=== PATIENT | female | born 1970 | race Caucasian/White ===

== ENCOUNTER 2022-12-26 09:49 | Emergency (ER) | payer SELFPAY ==
[2022-12-26] MEDS ORDERED: clonazePAM 0.5 MG TAB ONE (10:15)
[2022-12-26 10:51] LABS: Absolute Lymphocytes (CBC) 1.8 K/uL (0.7-4.9); Hematocrit 44.7 % (36.0-45.0); Lymphocytes % 20.5 % (15.3-44.8); MCV 90.4 fL (80-100); MPV 9.1 fL (7.6-11.3); RBC Red Blood Cell Count 4.95 M/uL (3.86-4.86)
[2022-12-26 11:17] LABS: BUN Blood Urea Nitrogen 15 mg/dL (7-18); Bicarbonate 29 mmol/L (21-32); Glomerular Filtration Rate 83 ml/min (=/>90); Magnesium 1.8 mg/dL (1.6-2.4); Potassium 4.2 mmol/L (3.5-5.1); Sodium Level 131 mmol/L (136-145)
[2022-12-26 11:18] LABS: Troponin High Sensitivity < 3.0 pg/mL (<58.9)
[2022-12-26 11:19] LABS: Glucose Level 425 mg/dL (74-106)
--- NOTE | 2022-12-26 11:31 | RAD REPORT ---
EXAM DESCRIPTION: RAD - Chest Single View - 12/26/2022 11:22 am CLINICAL HISTORY: CHEST PAIN COMPARISON: No comparisons FINDINGS: Lines: Sternotomy. Atrial appendage occluding device. Lungs: No evidence of edema or pneumonia. Pleural: No significant pleural effusions or pneumothorax. Cardiac: The heart size is within normal limits. Mediastinum: Within normal limits. Bones: No acute fractures. Other: None IMPRESSION: No acute cardiopulmonary disease.
[2022-12-26] MEDS ORDERED: NA CHLORIDE 0.9% 1,000 ML ONE (11:41)
[2022-12-26] MEDS ORDERED: INSULIN -REGULAR HUMAN 50 UNIT/0.5 ML ML ONE (11:55)
--- NOTE | 2022-12-26 13:00 | EDPHYS ---
Physician Documentation [facility] Name: María San Age: 52 yrs Sex: Female : 1970 Arrival Date: 12/26/2022 Time: 09:50 Bed 16 Private MD: ED Physician Enrike Gregorio HPI: 12/26 13:25 This 52 yrs old Female presents to ER via Ambulatory with complaints of Anxiety. kb 13:25 The patient presents to the emergency department with anxiety, over unknown kb circumstances. Onset: The symptoms/episode began/occurred 3 day(s) ago. Past psychiatric history: Prior diagnosis: Anxiety depression, Psychiatric medications include: Jj, Primary psychiatric physician: the patient does not have a primary psychiatric physician. Associated signs and symptoms: Pertinent positives; anxiety, chest pain, palpitations, shortness of breath. Severity of symptoms: At their worst the symptoms were moderate in the emergency department the symptoms are unchanged. The patient has experienced similar episodes in the past. The patient has not recently seen a physician. Historical: - Allergies: 09:58 Benadryl; aa5 - Home Meds: 09:58 metformin 1000mg BID [Active]; Glipizide 5mg daily [Active]; metoprolol 25mg BID aa5 [Active]; atorvastatin 80mg daily [Active]; aspirin 81mg daily [Active]; lisinopril 2.5mg daily [Active]; lexapro 20mg daily [Active]; abilify 20mg daily [Active]; trazadone 100mg nightly [Active]; clonazepam 0.5mg TID [Active]; - PMHx: 09:58 Anxiety; Myocardial infarction; Diabetes mellitus; Hypercholesterolemia; Hypertensive aa5 disorder; - PSHx: 09:58 Triple bypass; aa5 - Immunization history:: Adult Immunizations unknown. - Social history:: Smoking status: Patient reports the use of cigarette tobacco products, denies chronic smoking, but will smoke occasionally. ROS: 13:31 Constitutional: Negative for fever, chills, and weight loss. kb 13:31 Cardiovascular: Positive for chest pain, palpitations. 13:31 Respiratory: Positive for shortness of breath. 13:31 Psych: Positive for anxiety. 13:31 All other systems are negative. Exam: 13:27 Constitutional: This is a well developed, well nourished patient who is awake, alert, kb and in no acute distress. Head/Face: Normocephalic, atraumatic. ENT: Moist Mucous membranes Cardiovascular: Regular rate and rhythm with a normal S1 and S2. No gallops, murmurs, or rubs. No pulse deficits. Respiratory: Respirations even and unlabored. No increased work of breathing. Talking in full sentences Abdomen/GI: Soft, non-tender. No distention Skin: Warm, dry with normal turgor. Normal color. MS/ Extremity: Pulses equal, no cyanosis. Neurovascular intact. Full, normal range of motion. Neuro: Awake and alert, GCS 15, oriented to person, place, time, and situation. Moves all extremities. Normal gait. 13:27 Psych: Behavior/mood is cooperative, anxious, Affect is calm, Oriented to person, place, time, Patient has no thoughts/intents to harm self or others. Judgement / Insight is normal. Memory is normal. Vital Signs: 09:57 BP 148 / 81; Pulse 120; Resp 24 S; Temp 98.2(TE); Pulse Ox 98% on R/A; aa5 10:32 Pulse 88; Resp 18; Pulse Ox 96% on R/A; Pain 0/10; ld1 12:05 BP 109 / 68; Pulse 86; Resp 18; Pulse Ox 97% on R/A; ld1 13:08 BP 111 / 75; Pulse 84; Resp 18; Pulse Ox 98% on R/A; Pain 0/10; ld1 MDM: 10:01 Patient medically screened. kb 13:27 Differential diagnosis: Anxiety, palpitations, IL, abnormal EKG. Data reviewed: vital kb signs, nurses notes. Consideration of Admission/Observation Escalation of care including admission/observation considered. Admission considered due to chest pain but will do a rule out in the ER due to onset of 3 days ago. Care significantly affected by the following chronic conditions: Diabetes, Hypertension. Scoring Tools HEART Score: History: ECG: Age: Risk Factors: > or = 3 Risk factors for atherosclerotic disease (2), Troponin: Total Score = 3. Counseling: I had a detailed discussion with the patient and/or guardian regarding: the historical points, exam findings, and any diagnostic results supporting the discharge/admit diagnosis, lab results, radiology results, the need for outpatient follow up, a family practitioner, to return to the emergency department if symptoms worsen or persist or if there are any questions or concerns that arise at home. ED course: Patient is a 52-year-old female with a history of IL and triple bypass that presents for anxiety attack that started 3 days ago. Reports palpitations, shortness of breath and chest pain associated with it. States that this feels similar to previous episodes of anxiety with her history and the chest pain she was concerned. Patient reports that she has been out of her Klonopin for a couple of days. On exam patient appears anxious, is tachycardic. Respirations even and unlabored, lungs clear bilaterally. Serum labs, EKG and chest x-ray ordered and completed. Patient educated on need for repeat troponin due to chest pain and history. Patient also educated on hyperglycemia and need for treatment. Patient states she has been taking her medications as prescribed. Patient elected not to have second troponin completed and wanted to go home. Patient was feeling better after Klonopin and did not want to wait for further treatment. Patient educated on return precautions that she could return at any point for any reason.. 12/26 10:05 Order name: Basic Metabolic Panel; Complete Time: 11:26 kb 12/26 10:05 Order name: CBC with Diff; Complete Time: 10:52 kb 12/26 10:05 Order name: Magnesium; Complete Time: 11:26 kb 12/26 10:05 Order name: Troponin HS; Complete Time: 11:26 kb 12/26 10:05 Order name: XRAY Chest (1 view); Complete Time: 11:40 kb 12/26 10:05 Order name: EKG; Complete Time: 10:05 kb 12/26 10:05 Order name: Cardiac monitoring; Complete Time: 10:08 kb 12/26 10:05 Order name: EKG - Nurse/Tech; Complete Time: 10:08 kb 12/26 10:05 Order name: IV Saline Lock; Complete Time: 10:48 kb 12/26 10:05 Order name: Labs collected and sent; Complete Time: 10:48 kb 12/26 10:05 Order name: O2 Per Protocol; Complete Time: 10:08 kb 12/26 10:05 Order name: O2 Sat Monitoring; Complete Time: 10:08 kb 12/26 12:59 Order name: Blood Glucose Level kb 12/26 13:05 Order name: Glucose, Ancillary Testing; Complete Time: 13:09 EDMS Administered Medications: 10:12 Drug: KLONopin (clonazePAM) 0.5 mg Route: PO; ld1 10:32 Follow up: Response: No adverse reaction ld1 11:38 Drug: NS 0.9% 1000 ml Route: IV; Rate: 1000 ml; Site: right antecubital; ld1 11:59 Drug: Insulin Regular Human 5 units {Co-Signature: iw (Chrissy Nunez RN).} Route: IVP; ld1 Site: left antecubital; Disposition: 19:22 Co-signature as Attending Physician, Enrike Gregorio MD I reviewed the patient's care rn provided by the Advanced Practice Provider and agree with the diagnosis and treatment plan. Disposition Summary: 12/26/22 13:00 Discharge Ordered Location: Home kb Condition: Stable kb Diagnosis - Anxiety disorder, unspecified kb Followup: kb - With: Emergency Department - When: As needed - Reason: Worsening of condition Followup: kb - With: Private Physician - When: 2 - 3 days - Reason: Recheck today's complaints, Continuance of care, Re-evaluation by your physician Discharge Instructions: - Discharge Summary Sheet kb - Panic Attack, [id number] kb - Managing Anxiety, Adult kb Forms: - Medication Reconciliation Form kb - Thank You Letter kb - Antibiotic Education kb - Prescription Opioid Use kb Signatures: Dispatcher [employer] EDWI Katelyn Quesada, TRANSPORT COMPANY MANAGER-C TRANSPORT COMPANY MANAGER-Enrike Ngo MD MD rn Calderon, Audri RN RN aa5 Christina Ravi RN RN ld1 Chrissy Nunez RN iw
--- NOTE | 2022-12-26 13:00 | ER ---
Nurse's Notes [facility] Name: María San Age: 52 yrs Sex: Female : 1970 Arrival Date: 12/26/2022 Time: 09:50 Bed 16 Private MD: Diagnosis: Anxiety disorder, unspecified Presentation: 12/26 09:57 Chief complaint: Patient states: "I've been having major anxiety and I just recently aa5 relocated here from [place] and I am out of my anxiety medication". 09:57 Coronavirus screen: At this time, the client does not indicate any symptoms associated aa5 with coronavirus-19. Ebola Screen: Patient denies travel to an Ebola-affected area in the 21 days before illness onset. Initial Sepsis Screen: Does the patient meet any 2 criteria? HR > 90 bpm. Does the patient have a suspected source of infection? No. Patient's initial sepsis screen is negative. Risk Assessment: Do you want to hurt yourself or someone else? Patient reports no desire to harm self or others. Onset of symptoms was December 24, 2022. 09:57 Method Of Arrival: Ambulatory aa5 09:57 Acuity: ZENAIDA 3 aa5 Historical: - Allergies: 09:58 Benadryl; aa5 - Home Meds: 09:58 metformin 1000mg BID [Active]; Glipizide 5mg daily [Active]; metoprolol 25mg BID aa5 [Active]; atorvastatin 80mg daily [Active]; aspirin 81mg daily [Active]; lisinopril 2.5mg daily [Active]; lexapro 20mg daily [Active]; abilify 20mg daily [Active]; trazadone 100mg nightly [Active]; clonazepam 0.5mg TID [Active]; - PMHx: 09:58 Anxiety; Myocardial infarction; Diabetes mellitus; Hypercholesterolemia; Hypertensive aa5 disorder; - PSHx: :58 Triple bypass; aa5 - Immunization history:: Adult Immunizations unknown. - Social history:: Smoking status: Patient reports the use of cigarette tobacco products, denies chronic smoking, but will smoke occasionally. Screenin:32 [facility] ED Fall Risk Assessment (Adult) History of falling in the last 3 months, ld1 including since admission No falls in past 3 months (0 pts). Abuse screen: Denies threats or abuse. Denies injuries from another. Nutritional screening: No deficits noted. Tuberculosis screening: No symptoms or risk factors identified. Assessment: 10:32 General: Appears in no apparent distress. comfortable, Behavior is cooperative, ld1 anxious. Pain: Denies pain. Neuro: Level of Consciousness is awake, alert, obeys commands, Oriented to person, place, time, situation, Appropriate for age. Cardiovascular: Capillary refill < 3 seconds Patient's skin is warm and dry. Rhythm is sinus rhythm. Respiratory: Airway is patent Respiratory effort is even, unlabored. GI: Abdomen is flat, non-distended. : No signs and/or symptoms were reported regarding the genitourinary system. EENT: No signs and/or symptoms were reported regarding the EENT system. Derm: No signs and/or symptoms reported regarding the dermatologic system. Musculoskeletal: No signs and/or symptoms reported regarding the musculoskeletal system. 13:08 Reassessment: Patient appears in no apparent distress at this time. No changes from ld1 previously documented assessment. Patient and/or family updated on plan of care and expected duration. Pain level reassessed. Patient is alert, oriented x 3, equal unlabored respirations, skin warm/dry/pink. 13:08 Reassessment: Pt requesting to leave - states "I feel much better." Notified ERP. ld1 Vital Signs: 09:57 BP 148 / 81; Pulse 120; Resp 24 S; Temp 98.2(TE); Pulse Ox 98% on R/A; aa5 10:32 Pulse 88; Resp 18; Pulse Ox 96% on R/A; Pain 0/10; ld1 12:05 BP 109 / 68; Pulse 86; Resp 18; Pulse Ox 97% on R/A; ld1 13:08 BP 111 / 75; Pulse 84; Resp 18; Pulse Ox 98% on R/A; Pain 0/10; ld1 ED Course: 09:50 Patient arrived in ED. am2 09:57 Arm band placed on. aa5 10:01 Katelyn Quesada FNP-C is PHCP. kb 10:01 Enrike Gregorio MD is Attending Physician. kb 10:02 Triage completed. aa5 10:08 Christina Ravi, HERMINIO is Primary Nurse. ld1 10:32 Patient has correct armband on for positive identification. Placed in gown. Bed in low ld1 position. Call light in reach. Side rails up X2. quality assurance monitor on. Pulse ox on. NIBP on. Door closed. Noise minimized. Warm blanket given. 10:32 No provider procedures requiring assistance completed. ld1 11:24 XRAY Chest (1 view) In Process Unspecified. EDMS 13:08 IV discontinued, intact, bleeding controlled, No redness/swelling at site. ld1 Administered Medications: 10:12 Drug: KLONopin (clonazePAM) 0.5 mg Route: PO; ld1 10:32 Follow up: Response: No adverse reaction ld1 11:38 Drug: NS 0.9% 1000 ml Route: IV; Rate: 1000 ml; Site: right antecubital; ld1 11:59 Drug: Insulin Regular Human 5 units {Co-Signature: michelle (Chrissy Nunez RN).} Route: IVP; ld1 Site: left antecubital; Medication: 10:32 VIS not applicable for this client. ld1 Outcome: 13:00 Discharge ordered by . yessi 13:08 Discharged to home ambulatory. ld1 13:08 Condition: stable 13:08 Discharge instructions given to patient, Instructed on discharge instructions, follow up and referral plans. Demonstrated understanding of instructions, follow-up care. 13:09 Patient left the ED. ld1 Signatures: Dispatcher [employer] Katelyn Jeong, COMMERCIAL LAWN SPECIALIST-C COMMERCIAL LAWN SPECIALIST-Gris Hester, RN RN aa5 Sharon Aguilar am2 Christina Ravi RN RN ld1 Chrissy martinez
[2022-12-26 13:22] VITALS: BP 111/75; O2SAT 98
[2022-12-26 13:24] VITALS: TEMP 100.1
--- NOTE | 2022-12-27 14:33 | EKG ---
Test Date: 2022-12-26 Test Time: 10:13:26 Manager Inside: JOEY MEASUREMENT RESULTS: Intervals: Rate: 99 IA: 168 QRSD: 92 QT: 334 QTc: 428 [place]: P: 65 IA: 168 QRS: 82 T: 44 INTERPRETIVE STATEMENTS: Normal sinus rhythm Septal infarct, age undetermined Abnormal ECG No previous ECG available for comparison Electronically Signed On 12-27-22 14:29:32 GLASS FRAME FITTER by David Santos
== END 2022-12-26 13:09 | disposition home or self-care (01) ==
LOC: ER 09:49
DX: F41.9 Anxiety disorder, unspecified (principal)
CPT/HCPCS: 36415; 71045; 80048; 82947; 83735; 84484; 85025; 93005; 96374; 99284; J1815; J7030

== ENCOUNTER 2023-05-21 12:35 | Emergency (ER) | payer SELFPAY ==
[2023-05-21] MEDS ORDERED: NA CHLORIDE 0.9% 1,000 ML ONE (14:27)
[2023-05-21 14:41] LABS: Absolute Lymphocytes (CBC) 2.7 K/uL (0.7-4.9); Hematocrit 44.1 % (36.0-45.0); Lymphocytes % 27.5 % (15.3-44.8); MCV 90.7 fL (80-100); MPV 8.5 fL (7.6-11.3); RBC Red Blood Cell Count 4.86 M/uL (3.86-4.86)
[2023-05-21 14:59] LABS: Albumin 3.4 g/dL (3.4-5.0); Bilirubin Total 0.3 mg/dL (0.2-1.0); Potassium 4.3 mEq/L (3.5-5.1); Protein, Total 7.2 g/dL (6.4-8.2)
[2023-05-21] MEDS ORDERED: INSULIN -REGULAR HUMAN 50 UNIT/0.5 ML ML ONE (15:18)
[2023-05-21] MEDS ORDERED: LORazepam 2 MG/ML VIAL ONE (15:53)
[2023-05-21 16:06] LABS: Specific Gravity 1.013 (1.005-1.030); Urine Bilirubin NEGATIVE (Negative); Urine Blood Negative (Negative); Urine Clarity Clear (Clear); Urine Color Yellow (Yellow); Urine Glucose 2+ (Negative); Urine Protein NEGATIVE (Negative); Urine Urobilinogen Normal (Normal); Urine pH 5.5 (5.0-7.0)
--- NOTE | 2023-05-21 16:21 | ER ---
Nurse's Notes [facility] Name: María San Age: 53 yrs Sex: Female : 1970 Arrival Date: 05/21/2023 Time: 12:35 Bed 16 Private MD: Diagnosis: Hyperglycemia, anxiety Presentation: 05/21 12:53 Chief complaint: Patient states: "I can't get my blood sugar under 300 and it's been aa5 going on for weeks". Pt reports generalized weakness, feeling lightheaded, and nausea. Pt also states "I am also very anxious". Coronavirus screen: nausea. Ebola Screen: Patient denies travel to an Ebola-affected area in the 21 days before illness onset. Initial Sepsis Screen: Does the patient meet any 2 criteria? No. Patient's initial sepsis screen is negative. Does the patient have a suspected source of infection? No. Patient's initial sepsis screen is negative. Risk Assessment: Do you want to hurt yourself or someone else? Patient reports no desire to harm self or others. Onset of symptoms was April 2023. 12:53 Acuity: ZENAIDA 3 aa5 12:53 Method Of Arrival: Ambulatory aa5 FILEMAKER DEVELOPER: 12:57 LMP N/A - Post-menopause aa5 Historical: - Allergies: 12:53 Benadryl; aa5 - PMHx: 12:53 Anxiety; diabetes mellitus; Hypercholesterolemia; Hypertensive disorder; Myocardial aa5 infarction; - PSHx: 12:53 triple bypass; aa5 Screenin:00 [facility] ED Fall Risk Assessment (Adult) History of falling in the last 3 months, ll1 including since admission No falls in past 3 months (0 pts) Confusion or Disorientation No (0 pts) Intoxicated or Sedated No (0 pts) Impaired Gait No (0 pts) Mobility Assist Device Used No (0 pt) Altered Elimination No (0 pt) Score/Fall Risk Level 0 - 2 = Low Risk. Abuse screen: Denies threats or abuse. Denies injuries from another. Nutritional screening: No deficits noted. Tuberculosis screening: No symptoms or risk factors identified. Assessment: 13:00 General: Appears in no apparent distress. comfortable, Behavior is cooperative, ll1 appropriate for age, anxious. Pain: Denies pain. Neuro: Level of Consciousness is awake, alert, obeys commands, Oriented to person, place, time, situation, Appropriate for age Reports dizziness. Cardiovascular: Capillary refill < 3 seconds. Respiratory: Airway is patent Trachea midline Respiratory effort is even, unlabored, Respiratory pattern is regular, symmetrical. GI: Reports nausea, Patient currently denies diarrhea, vomiting. : No signs and/or symptoms were reported regarding the genitourinary system. EENT: No signs and/or symptoms were reported regarding the EENT system. Derm: No signs and/or symptoms reported regarding the dermatologic system. Skin is intact, is healthy with good turgor, Skin is pink, warm \\T\\ dry. Musculoskeletal: No signs and/or symptoms reported regarding the musculoskeletal system. Circulation, motion, and sensation intact. Capillary refill < 3 seconds, Range of motion: intact in all extremities. 14:00 Reassessment: Patient appears in no apparent distress at this time. No changes from ll1 previously documented assessment. Patient and/or family updated on plan of care and expected duration. Pain level reassessed. Patient is alert, oriented x 3, equal unlabored respirations, skin warm/dry/pink. 15:00 Reassessment: Patient appears in no apparent distress at this time. No changes from ll1 previously documented assessment. Patient and/or family updated on plan of care and expected duration. Pain level reassessed. Patient is alert, oriented x 3, equal unlabored respirations, skin warm/dry/pink. Vital Signs: 12:53 BP 138 / 91; Pulse 80; Resp 18 S; Temp 98.1(TE); Pulse Ox 98% on R/A; Weight 68.04 kg aa5 (R); Height 5 ft. 5 in. (R); 15:35 BP 110 / 64; Pulse 68; Resp 19 S; Pulse Ox 100% on R/A; Pain 0/10; ll1 12:53 Body Mass Index 24.96 (68.04 kg, 165.1 cm) aa5 15:35 Pain Scale: Adult ll1 ED Course: 12:37 Patient arrived in ED. am2 12:41 Rome Sabillon MD is Attending Physician. sp3 12:53 Arm band placed on. aa5 12:55 Triage completed. aa5 13:00 Patient has correct armband on for positive identification. Bed in low position. Call ll1 light in reach. Side rails up X 1. Adult w/ patient. 13:51 Patient placed in an exam room, on a stretcher. ll1 13:57 Helen Cordova, RN is Primary Nurse. 1 16:27 Provided Education on: diabetes and anxiety management. 6 16:27 No provider procedures requiring assistance completed. IV discontinued, intact, kc6 bleeding controlled, No redness/swelling at site. Pressure dressing applied. Administered Medications: 14:32 Drug: NS 0.9% IV 1000 ml Route: IV; Rate: 1 bolus; Site: right antecubital; ll1 15:53 Follow up: Response: No adverse reaction; IV Status: Completed infusion; IV Intake: ll1 1000ml 15:14 Drug: Insulin Regular Human IVP 10 units {Co-Signature: eh3 (Ryanne Levy RN).} Route: ll1 IVP; Site: right antecubital; 15:53 Follow up: Response: No adverse reaction; Blood sugar is lowered ll1 15:52 Drug: Ativan IVP 1 mg Route: IVP; Site: right antecubital; 1 16:27 Follow up: Response: No adverse reaction; Anxiety decreased; RASS: Alert and Calm (0) [facility] Medication: 16:28 VIS not applicable for this client. 6 Point of Care Testing: Blood Glucose: 12:57 Blood Glucose: 306 mg/dL; aa5 Ranges: Intake: 15:53 IV: 1000ml; Total: 1000ml. 1 Outcome: 16:21 Discharge ordered by . sp3 16:27 Discharged to home ambulatory, with significant other. 6 16:27 Condition: improved 16:27 Discharge instructions given to patient, Instructed on discharge instructions, follow up and referral plans. Demonstrated understanding of instructions, follow-up care. 16:28 Patient left the ED. [facility] Signatures: Gris Barajas RN RN aa5 Sharon Aguilar am2 Helen Cordova, HERMINIO RN ll1 Rome Sabillon MD MD sp3 Jie Beltrán RN RN kc6 Ryanne Levy RN eh3 Corrections: (The following items were deleted from the chart) 13:32 12:53 Allergies: Benadryl; aa5 aa5 13:32 12:53 Allergies: Morphine; aa5 aa5 13:35 13:34 Allergies: tomatoes; aa5 aa5
--- NOTE | 2023-05-21 16:21 | EDPHYS ---
Physician Documentation [facility] Name: María San Age: 53 yrs Sex: Female : 1970 Arrival Date: 05/21/2023 Time: 12:35 Bed 16 Private MD: ED Physician Rome Sabillon HPI: 05/21 14:53 This 53 yrs old Female presents to ER via Ambulatory with complaints of Anxiety, High sp3 Blood Sugar. 14:53 53-year-old female with history of diabetes, anxiety, hyperlipidemia presents to the ED sp3 with chief complaint elevated blood sugar "for several weeks" of greater than 300. She also states that she has had increased anxiety since she is out of her medications. She states that she recently moved from [place] has not found a local PCP yet. She denies headache, fever, infectious symptoms including URI and UTI symptoms, chest pain, shortness of breath, abdominal pain, nausea, vomiting, diarrhea, syncope, neurological symptoms, or any other signs or symptoms on ROS at this time. She also denies travel history, prolonged immobilization, or known sick contacts. She takes metformin for her diabetes and denies taking insulin.. 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: 12:57 LMP N/A - Post-menopause aa5 Historical: - Allergies: 12:53 Benadryl; aa5 - PMHx: 12:53 Anxiety; diabetes mellitus; Hypercholesterolemia; Hypertensive disorder; Myocardial aa5 infarction; - PSHx: 12:53 triple bypass; aa5 ROS: 14:54 Constitutional: Negative for fever, chills, and weight loss, Eyes: Negative for injury, sp3 pain, redness, and discharge, ENT: Negative for injury, pain, and discharge, Neck: Negative for injury, pain, and swelling, Cardiovascular: Negative for chest pain, palpitations, and edema, Respiratory: Negative for shortness of breath, cough, wheezing, and pleuritic chest pain, Abdomen/GI: Negative for abdominal pain, nausea, vomiting, diarrhea, and constipation, Back: Negative for injury and pain, MS/Extremity: Negative for injury and deformity, Skin: Negative for injury, rash, and discoloration, Neuro: Negative for headache, weakness, numbness, tingling, and seizure, Allergy/Immunology: Negative for hives, rash, and allergies, Endocrine: Negative for neck swelling, polydipsia, polyuria, polyphagia, and marked weight changes, Hematologic/Lymphatic: Negative for swollen nodes, abnormal bleeding, and unusual bruising. 14:54 All other systems are negative. Exam: 14:54 Constitutional: This is a well developed, well nourished patient who is awake, alert, sp3 and in no acute distress. Head/Face: Normocephalic, atraumatic. Eyes: Pupils equal round and reactive to light, extra-ocular motions intact. Lids and lashes normal. Conjunctiva and sclera are non-icteric and not injected. Cornea within normal limits. Periorbital areas with no swelling, redness, or edema. ENT: Nares patent. No nasal discharge, no septal abnormalities noted. External auditory canals are clear. Oropharynx with no redness, swelling, or masses, exudates, or evidence of obstruction, uvula midline. Mucous membranes moist. Neck: Trachea midline, no thyromegaly or masses palpated, and no cervical lymphadenopathy. Supple, full range of motion without nuchal rigidity, or vertebral point tenderness. No Meningismus. Chest/axilla: Normal chest wall appearance and motion. Nontender with no deformity. No lesions are appreciated. Cardiovascular: Regular rate and rhythm with a normal S1 and S2. No gallops, murmurs, or rubs. Normal PMI, no JVD. No pulse deficits. Respiratory: Lungs have equal breath sounds bilaterally, clear to auscultation and percussion. No rales, rhonchi or wheezes noted. No increased work of breathing, no retractions or nasal flaring. Abdomen/GI: Soft, non-tender, with normal bowel sounds. No distension or tympany. No guarding or rebound. No evidence of tenderness throughout. Back: No spinal tenderness. No costovertebral tenderness. Full range of motion. Skin: Warm, dry with normal turgor. Normal color with no rashes, no lesions, and no evidence of cellulitis. MS/ Extremity: Pulses equal, no cyanosis. Neurovascular intact. Full, normal range of motion. Neuro: Awake and alert, GCS 15, oriented to person, place, time, and situation. Cranial nerves II-XII grossly intact. Motor strength 5/5 in all extremities. Sensory grossly intact. Cerebellar exam normal. Normal gait. Psych: Awake, alert, with orientation to person, place and time. Behavior, mood, and affect are within normal limits. Vital Signs: 12:53 BP 138 / 91; Pulse 80; Resp 18 S; Temp 98.1(TE); Pulse Ox 98% on R/A; Weight 68.04 kg aa5 (R); Height 5 ft. 5 in. (R); 15:35 BP 110 / 64; Pulse 68; Resp 19 S; Pulse Ox 100% on R/A; Pain 0/10; ll1 12:53 Body Mass Index 24.96 (68.04 kg, 165.1 cm) aa5 15:35 Pain Scale: Adult ll1 MDM: 13:16 Patient medically screened. sp3 14:54 Data reviewed: vital signs, nurses notes, lab test result(s). ED course: 53-year-old sp3 female with diabetes and anxiety now with hyperglycemia. She denies any change in diet or any infectious symptoms. Blood sugars 306 in ED. Will administer 10 units of insulin IV and check laboratory values for any gap acidosis. Normal saline 1 L will also be given. I am not highly suspicious for infectious etiology, acute coronary syndrome, sepsis, shock, or any other insult leading to her hyperglycemia. She does endorse possible dietary changes which could have led to her symptoms. I advised her to find a local PCP and follow-up for potential change in medication as well as treatment for her anxiety. If work-up is negative, we will safely discharge her home with no other intervention indicated.. 16:20 ED course: Blood sugar is down to 166. Urinalysis demonstrates no infection. There is sp3 no gap acidosis on chemistries. Remainder of lab work is normal. Patient feels better and anxiety was controlled with 1 mg of Ativan. Patient is ready for discharge safely at this time.. 05/21 13:09 Order name: Glucose, Ancillary Testing; Complete Time: 14:14 EDMS 05/21 13:17 Order name: CBC with Diff; Complete Time: 14:56 sp3 05/21 13:17 Order name: CMP; Complete Time: 15:47 sp3 05/21 13:17 Order name: Lipase; Complete Time: 15:47 sp3 05/21 13:17 Order name: Test, Urine; Complete Time: 16:18 3 05/21 13:17 Order name: Urinalysis w/ reflexes; Complete Time: 16:18 sp3 05/21 16:01 Order name: Glucose, Ancillary Testing; Complete Time: 16:18 EDMS 05/21 13:17 Order name: IV Saline Lock; Complete Time: 14:32 sp3 05/21 13:17 Order name: Labs collected and sent; Complete Time: 14:32 sp3 05/21 13:17 Order name: Accucheck; Complete Time: 14:12 sp3 Administered Medications: 14:32 Drug: NS 0.9% IV 1000 ml Route: IV; Rate: 1 bolus; Site: right antecubital; 1 15:53 Follow up: Response: No adverse reaction; IV Status: Completed infusion; IV Intake: ll1 1000ml 15:14 Drug: Insulin Regular Human IVP 10 units {Co-Signature: eh3 (Ryanne Levy RN).} Route: ll1 IVP; Site: right antecubital; 15:53 Follow up: Response: No adverse reaction; Blood sugar is lowered ll1 15:52 Drug: Ativan IVP 1 mg Route: IVP; Site: right antecubital; 1 16:27 Follow up: Response: No adverse reaction; Anxiety decreased; RASS: Alert and Calm (0) kc6 Point of Care Testing: Blood Glucose: 12:57 Blood Glucose: 306 mg/dL; aa5 Ranges: Critical Glucose Levels:Adult <50 mg/dl or >400 mg/dl <40 mg/dl or >180 mg/dl Disposition Summary: 05/21/23 16:21 Discharge Ordered Location: Home sp3 Condition: Stable sp3 Diagnosis - Hyperglycemia, anxiety sp3 Followup: sp3 - With: Private Physician - When: Upon discharge from the Emergency Department - Reason: Continuance of care Discharge Instructions: - Discharge Summary Sheet sp3 - Hyperglycemia sp3 - Managing Anxiety, Adult sp3 Forms: - Medication Reconciliation Form sp3 - Thank You Letter sp3 - Antibiotic Education sp3 - Prescription Opioid Use sp3 - Patient Portal Instructions sp3 Signatures: Dispatcher [employer] EDGris Rivera RN RN aa5 Helen Cordova RN RN ll1 Rome Sabillon MD MD sp3 Jie Beltrán RN kc6 Ryanne Levy RN eh3 Corrections: (The following items were deleted from the chart) 13:32 12:53 Allergies: Benadryl; aa5 aa5 13:32 12:53 Allergies: Morphine; aa5 aa5 13:35 13:34 Allergies: tomatoes; aa5 aa5
[2023-05-21 17:06] VITALS: TEMP 98.1
[2023-05-21 17:08] VITALS: BP 110/64; O2SAT 100
== END 2023-05-21 16:28 | disposition home or self-care (01) ==
LOC: ER 12:35
DX: E11.65 Type 2 diabetes mellitus with hyperglycemia (principal); F41.9 Anxiety disorder, unspecified
CPT/HCPCS: 36415; 80053; 81003; 81025; 82947; 83690; 85025; 96361; 96374; 96375; 99284; J1815; J7030

== ENCOUNTER → 2023-11-02 | Emergency (ER) | payer SELFPAY ==
[~2023-11-02] MED LIST: INSULIN GLARGINE 100 UNIT/ML SQ ONE; INSULIN REGULAR (HUMAN) 100 UNIT/ML ONE; LORAZEPAM 1 MG TABLET ONE; LORazepam 2 MG/ML VIAL ONE; NA CHLORIDE 0.9% 1,000 ML ONE; NA CHLORIDE 0.9% 500 ML ONE; NICOTINE 21 MG/PAT TD ONE
[2023-11-02 13:01] LABS: Absolute Lymphocytes (CBC) 1.6 K/uL (0.7-4.9); Hematocrit 45.3 % (36.0-45.0); Lymphocytes % 19.4 % (15.3-44.8); MPV 8.4 fL (7.6-11.3); Platelets 293 thou/uL (152-406); RBC Red Blood Cell Count 5.15 M/uL (3.86-4.86)
[2023-11-02 13:14] LABS: Protime INR 0.97
[2023-11-02 13:19] LABS: ALT/SGPT 22 U/L (13-56); AST/SGOT 8 U/L (15-37); Albumin 3.4 g/dL (3.4-5.0); Alkaline Phosphatase 149 U/L (45-117); BUN Blood Urea Nitrogen 8 mg/dL (7-18); Bicarbonate 24 mEq/L (21-32); Bilirubin Direct 0.1 mg/dL (0-0.2); Bilirubin Indirect, Calculated 0.3 mg/dL (0.2-0.8); Bilirubin Total 0.4 mg/dL (0.2-1.0); Glomerular Filtration Rate 90 ml/min (=/>90); Potassium 4.2 mEq/L (3.5-5.1); Protein, Total 8.1 g/dL (6.4-8.2); Sodium Level 131 mEq/L (136-145)
[2023-11-02 13:20] LABS: Glucose Level 440 mg/dL (74-106)
--- NOTE | 2023-11-02 13:26 | ER ---
Nurse's Notes [facility] Name: María San Age: 53 yrs Sex: Female : 1970 Arrival Date: 11/02/2023 Time: 12:07 Bed 16 Private MD: Diagnosis: Suicidal ideations Presentation: 11/02 12:25 Chief complaint: Pt brought in by [place] [employer] who state that they were called to her residence by her for suicidal statements. Report that pt had stated that she was "going to dive off of the balcony" Then stated "I'm going to slit my wrist. I can't do this anymore, I'm at the end of my rope. I don't want to live anymore." Pt tearful upon arrival to ED, cooperative w/ staff, states, " I just can't do it anymore." Also reports that she has been out of her psychiatric medications for approx 1 month. Coronavirus screen: Vaccine status: Patient reports being unvaccinated. Ebola Screen: No symptoms or risks identified at this time. Initial Sepsis Screen: Does the patient meet any 2 criteria? No. Patient's initial sepsis screen is negative. Does the patient have a suspected source of infection? No. Patient's initial sepsis screen is negative. Risk Assessment: Do you want to hurt yourself or someone else? Patient reports desire/thoughts of hurting themselves or someone else. Provider notified. Other: suicidal statements. Onset of symptoms was November 02, 2023. 12:25 Method Of Arrival: Law Enforcement: Jennifer POND 12:25 Acuity: ZENAIDA 2 Triage Assessment: 12:30 General: Appears in no apparent distress. Behavior is cooperative, anxious, crying. ph Pain: Denies pain. Neuro: Level of Consciousness is awake, alert, obeys commands, Oriented to person, place, time, situation. Cardiovascular: Capillary refill < 3 seconds in bilateral fingers Patient's skin is warm and dry. Respiratory: Airway is patent Respiratory effort is even, unlabored. Derm: Skin is pink, warm \\T\\ dry. Historical: - Allergies: 13:42 Benadryl; ph - Home Meds: 19:25 abilify 20mg daily [Active]; aspirin 81mg daily [Active]; atorvastatin 80mg daily ph [Active]; clonazepam 0.5mg TID [Active]; Glipizide 5mg daily [Active]; lexapro 20mg daily [Active]; lisinopril 2.5mg daily [Active]; metformin 1000mg BID [Active]; metoprolol 25mg BID [Active]; trazadone 100mg nightly [Active]; - PMHx: 13:42 Anxiety; diabetes mellitus; Hypercholesterolemia; Hypertensive disorder; Myocardial ph infarction; - PSHx: 13:42 triple bypass; Cholecystectomy; ph - Immunization history:: Adult Immunizations unknown. - Social history:: Smoking status: Reported history of juuling and/or vaping. Patient/guardian denies using alcohol, street drugs. Screenin:00 [facility] ED Fall Risk Assessment (Adult) History of falling in the last 3 months, ph including since admission No falls in past 3 months (0 pts) Score/Fall Risk Level 0 - 2 = Low Risk Oriented to surroundings, Maintained a safe environment. Abuse screen: Denies threats or abuse. Denies injuries from another. Nutritional screening: No deficits noted. Tuberculosis screening: No symptoms or risk factors identified. Assessment: 13:00 General: SEE TRIAGE ASSESSMENT. ph 14:00 Reassessment: Patient appears in no apparent distress at this time. Patient and/or ph family updated on plan of care and expected duration. Pain level reassessed. Patient is alert, oriented x 3, equal unlabored respirations, skin warm/dry/pink. Pt tearful, requesting anxiety medication and nicotine patch. 15:05 Reassessment: [facility] at bedside to speak w/ pt. ph 16:00 Reassessment: Patient appears in no apparent distress at this time. Patient and/or ph family updated on plan of care and expected duration. Pain level reassessed. Patient is alert, oriented x 3, equal unlabored respirations, skin warm/dry/pink. 17:00 Reassessment: Patient appears in no apparent distress at this time. Patient and/or ph family updated on plan of care and expected duration. Pain level reassessed. Patient is alert, oriented x 3, equal unlabored respirations, skin warm/dry/pink. Pt resting quietly, reading book. 19:00 General: Appears in no apparent distress. comfortable, well groomed, well developed, pf1 Behavior is calm, cooperative, appropriate for age, quiet. 19:00 Pain: Denies pain. Neuro: Level of Consciousness is awake, alert, obeys commands, pf1 Oriented to person, place, time, situation, Reports suicidal ideations. Cardiovascular: No deficits noted. Capillary refill < 3 seconds Patient's skin is warm and dry. Respiratory: No deficits noted. Airway is patent Respiratory effort is even, unlabored, Respiratory pattern is regular, symmetrical. GI: No deficits noted. No signs and/or symptoms were reported involving the gastrointestinal system. : No deficits noted. No signs and/or symptoms were reported regarding the genitourinary system. EENT: No deficits noted. No signs and/or symptoms were reported regarding the EENT system. Derm: No deficits noted. No signs and/or symptoms reported regarding the dermatologic system. 20:00 Reassessment: Patient appears in no apparent distress at this time. Patient and/or pf1 family updated on plan of care and expected duration. Pain level reassessed. Patient is alert, oriented x 3, equal unlabored respirations, skin warm/dry/pink. suicidal precautions in place, . 21:00 Reassessment: Patient appears in no apparent distress at this time. Patient and/or pf1 family updated on plan of care and expected duration. Pain level reassessed. Patient is alert, oriented x 3, equal unlabored respirations, skin warm/dry/pink. suicidal precautions in place. 21:49 Reassessment: Pt noted to have her vape and was using it in front of this nurse. [email or web address] Informed that this is a non smoking campus and vape was labeled with pt identifier and taken. Sent to the [facility] with security. Is a brown and black vape marked "[employer]". 22:00 Reassessment: Patient appears in no apparent distress at this time. Patient and/or pf1 family updated on plan of care and expected duration. Pain level reassessed. Patient is alert, oriented x 3, equal unlabored respirations, skin warm/dry/pink. suicidal precautions in place. 23:00 Reassessment: Patient appears in no apparent distress at this time. Patient and/or pf1 family updated on plan of care and expected duration. Pain level reassessed. Patient is alert, oriented x 3, equal unlabored respirations, skin warm/dry/pink. suicide precautions in place. 11/03 00:00 Reassessment: Patient appears in no apparent distress at this time. Patient and/or pf1 family updated on plan of care and expected duration. Pain level reassessed. Patient is alert, oriented x 3, equal unlabored respirations, skin warm/dry/pink. suicidal precautions in place Patient states symptoms have improved. 01:00 Reassessment: Patient appears in no apparent distress at this time. Patient and/or pf1 family updated on plan of care and expected duration. Pain level reassessed. Patient is alert, oriented x 3, equal unlabored respirations, skin warm/dry/pink. suicidal precautions in place. 02:00 Reassessment: Patient appears in no apparent distress at this time. Patient and/or pf1 family updated on plan of care and expected duration. Pain level reassessed. Patient is alert, oriented x 3, equal unlabored respirations, skin warm/dry/pink. suicidal precautions in place Patient states symptoms have improved. 03:00 Reassessment: Patient appears in no apparent distress at this time. Patient and/or pf1 family updated on plan of care and expected duration. Pain level reassessed. Patient is alert, oriented x 3, equal unlabored respirations, skin warm/dry/pink. suicidal precautions in place. 04:00 Reassessment: Patient appears in no apparent distress at this time. Patient and/or pf1 family updated on plan of care and expected duration. Pain level reassessed. Patient is alert, oriented x 3, equal unlabored respirations, skin warm/dry/pink. suicidal precautions in place. 05:00 Reassessment: Patient appears in no apparent distress at this time. Patient and/or pf1 family updated on plan of care and expected duration. Pain level reassessed. Patient is alert, oriented x 3, equal unlabored respirations, skin warm/dry/pink. suicidal precautions in place Patient states symptoms have improved. 06:00 Reassessment: Patient appears in no apparent distress at this time. Patient and/or pf1 family updated on plan of care and expected duration. Pain level reassessed. Patient is alert, oriented x 3, equal unlabored respirations, skin warm/dry/pink. suicidal precautions in place. 07:00 Reassessment: Patient appears in no apparent distress at this time. No changes from iw previously documented assessment. Patient and/or family updated on plan of care and expected duration. Pain level reassessed. Patient is alert, oriented x 3, equal unlabored respirations, skin warm/dry/pink. Patient denies pain at this time. 08:00 Reassessment: Patient appears in no apparent distress at this time. No changes from iw previously documented assessment. Patient and/or family updated on plan of care and expected duration. Pain level reassessed. Patient is alert, oriented x 3, equal unlabored respirations, skin warm/dry/pink. Psych: 11/02 12:30 [place] Suicide Severity Screening: In the past month, have you wished you were ph or wished you could go to sleep and not wake up? Patient responds "yes." "In the past month, have you actually had any thoughts of killing yourself?" Patient responds "yes." "In your lifetime, have you ever done anything, started to do anything, or prepared to do anything to end your life?" Patient responds "no.". Subjective: Patient's mood is sad, hopeless, Delusions are denied, Hallucinations are denied Having thoughts of suicide. Plan for suicide is jump off balcony or slit wrists. Objective: Patient is cooperative, Speech is normal, Affect is appropriate. Interventions: Removed personal items and placed in bag. Patient placed in hospital gown. Searched person for dangerous items. Urine collected and sent for urine drug test. Belonging list filled out. Safety Checks: Personal items have been removed. Door is open. No visitors are present at this time. Pt denies substance abuse. 19:00 [place] Suicide Severity Screening: In the past month, have you wished you were pf1 or wished you could go to sleep and not wake up? Patient responds "yes." "In the past month, have you actually had any thoughts of killing yourself?" Patient responds "yes." "In your lifetime, have you ever done anything, started to do anything, or prepared to do anything to end your life?" Patient responds "no.". 19:00 Subjective: Patient's mood is sad, hopeless, Delusions are denied, Hallucinations are pf1 denied Having thoughts of suicide. Plan for suicide is patient stated thoughts of cutting her wrists. Objective: Patient is cooperative, Speech is normal, Affect is appropriate. Interventions: Removed personal items and placed in bag. Patient placed in hospital gown. Searched person for dangerous items. Belonging list filled out. patient placed in blue paper scrubs. Safety Checks: Personal items have been removed. Door is open. No visitors are present at this time. Pt denies substance abuse. Vital Signs: 12:22 BP 141 / 92; Pulse 91; Resp 22; Temp 97.5; Pulse Ox 98% on R/A; ph 12:25 Weight 68.04 kg; Height 5 ft. 5 in. ; ph 21:00 BP 118 / 64; Pulse 90; Resp 16; Temp 97.9(O); Pulse Ox 97% on R/A; Pain 0/10; pf1 11/03 06:34 BP 120 / 76; Pulse 78; Resp 16; Pulse Ox 99% ; pf1 14:00 BP 128 / 74; Pulse 98; Resp 16; Temp 98; Pulse Ox 97% on R/A; iw 11/02 12:25 Body Mass Index 24.96 (68.04 kg, 165.1 cm) ph 21:00 Pain Scale: Adult pf1 ED Course: 11/02 12:21 Patient arrived in ED. eb 12:23 Anais Velez FNP is PHCP. 7 12:23 Dudley Hopper MD is Attending Physician. [facility] er 12:26 Allison Levy RN is Primary Nurse. ph 13:03 Initial lab(s) drawn, by pr, sent to lab. EKG done, by ED staff, reviewed by Anais RICO. Inserted saline lock: 22 gauge in left wrist, using aseptic technique. Blood collected. 13:42 Triage completed. ph 13:44 Arm band placed on Patient placed in an exam room, on a stretcher. ph 13:56 called the [facility] crisis line/ Ryanne will page the screener tree surgeon helper. eb 14:00 Patient has correct armband on for positive identification. Call light in reach. ph 14:10 Sombraeden from [facility] called/ he will be here in one hour for patient screening. eb 16:16 faxed patient chart to the following facilities in attempt to find placement/ [facility], [facility], [facility], [facility] and [facility]. 16:24 connected Mellissa Stock from [facility] with [facility] for nurse to nurse. 16:28 administrative approval given by Desire Allison/ Dr. Ferguson has accepted the patient in eb transfer without conference with Anais Polishing Machine Tender/ we are asked to keep patient over night. Mellissa asks that we call in the morning to see what time we can make transport arrangements/ provider notified. 19:28 No provider procedures requiring assistance completed. ph 11/03 07:00 Safety Checks: Personal items have been removed. The door is open or patient has been iw placed in a hallway bed/chair. There are no family/friend visitors at this time Sitter present at this time. 07:00 Patient maintains SpO2 saturation greater than 95% on room air. iw 07:00 Report received from HERMINIO Rollins. iw 07:00 Patient is placed in psych hold. iw 07:41 Primary Nurse role handed off by Allison Levy RN bd 10:05 Attending Physician role handed off by Dudley Hopper MD ms3 10:05 Ishmael Monreal DO is Attending Physician. ms3 10:07 Fariba Ledezma is Primary Nurse. cp4 Administered Medications: 11/02 13:58 Drug: LORazepam PO 1 mg PO once Route: PO; ph 13:58 Drug: Nicoderm CQ Transdermal Patch 21 mg/24 hr 1 patches Transdermal once {Note: ph applied to L upper arm.} Route: Transdermal; Site: affected area; 14:01 Drug: Insulin Regular Human IVP 10 units IVP once {Co-Signature: cp4 (vinny Ledezma).} Route: IVP; Site: left wrist; 16:35 Drug: NS 0.9% IV 1000 ml IV at 1 bolus Per protocol; 1000 mL bolus Route: IV; Rate: 1 ph bolus; Site: left wrist; 16:35 Drug: Insulin Regular Human IVP 10 units IVP once {Co-Signature: cp4 (Brisa [facility] [place]).} Route: IVP; Site: left wrist; 21:35 CANCELLED (ordered under Dr. Francois): insulin regular human10 units IVP once pf1 21:35 CANCELLED (ordered under Dr. Francois): ns 0.9% 1000 ml IV at 1 bolus Per protocol; pf1 1000 mL bolus 21:35 CANCELLED (order by Dr. gould ): insulin [id number] units Sub-Q once pf1 21:52 Drug: Ativan IVP 2 mg IVP once Route: IVP; Site: left wrist; pf1 22:50 Follow up: Response: No adverse reaction; Marked relief of symptoms; Anxiety decreased pf1 21:53 Drug: Insulin Regular Human IVP 10 units IVP once {Co-Signature: cp4 (Potter, pf1 Fariba).} Route: IVP; Site: left wrist; 22:50 Follow up: Response: No adverse reaction; Marked relief of symptoms; Blood sugar is pf1 lowered 21:56 Drug: Insulin Glargine Sub-Q 30 units Sub-Q once {Co-Signature: cp4 (Potter, pf1 Fariba).} Route: Sub-Q; Site: left upper arm; 22:50 Follow up: Response: No adverse reaction; Marked relief of symptoms; Blood sugar is pf1 lowered 21:57 Drug: NS 0.9% IV 1000 ml IV at 1 bolus Per protocol; 1000 mL bolus Route: IV; Rate: 1 pf1 bolus; Site: left wrist; 23:24 Follow up: IV Status: Completed infusion; IV Intake: 1000ml pf1 23:47 Drug: Insulin Regular Human Sub-Q 10 units Sub-Q once {Co-Signature: lg3 (Kell Macedo pf1 RN).} Route: Sub-Q; Site: right upper arm; 11/03 00:40 Follow up: Response: No adverse reaction; Marked relief of symptoms; Blood sugar is pf1 lowered 10:12 Drug: Ativan IVP 2 mg IVP once Route: IVP; Site: left wrist; cp4 Medication: 11/02 14:00 VIS not applicable for this client. ph Intake: 23:24 IV: 1000ml; Total: 1000ml. pf1 Outcome: 13:26 ER care complete, transfer ordered by 7 11/03 14:13 Patient left the ED. iw Signatures: Gail Graf Irene, RN RN iw Braydon Quevedo em1 Allison Levy RN RN Desmond Baez, HERMINIO RN jb4 Gabbie Guadalupe Marcus, DO DO ms3 Anais Velez, POLISHER APPRENTICE POLISHER APPRENTICE 7 Nan Quinteros RN RN pf1 Fariba Ledezma cp4 Fariba Ledezma cp4 Kell Macedo RN lg3 Corrections: (The following items were deleted from the chart) 11/02 21:03 21:00 BP 118 / 64; Pulse 90bpm; Resp 16bpm; Pulse Ox 97% RA; Temp 96F Oral; Pain 0/10, pf1 Adult; pf1
--- NOTE | 2023-11-02 13:26 | EDPHYS ---
Physician Documentation [facility] Name: María San Age: 53 yrs Sex: Female : 1970 Arrival Date: 11/02/2023 Time: 12:07 Bed 16 Private MD: ED Physician Ishmael Monreal HPI: 11/02 12:23 This 53 yrs old Female presents to ER via Unassigned with complaints of Suicidal jh7 ideation. 12:23 The patient presents to the emergency department with depression, over a , pet, jh7 over money, lost job, suicide ideation, and the patient has a plan, to cut oneself and bleed, to jump from a height. Past psychiatric history: Prior diagnosis: bipolar disorder, Primary psychiatric physician: the patient does not have a primary psychiatric physician. Associated signs and symptoms: Pertinent positives; suicide ideation, Pertinent negatives: abdominal pain, homicidal ideation, palpitations. 12:23 The patient's called PD because she stated that she plan to slit her wrist and jh7 jump off the balcony and an intent to kill herself. Jennifer POND reported that the patient admitted that her had recently lost his job and that her dog was dying. Also reports a history of diabetes and bipolar 2. She states that she is out of her psych medication and does not have a psychiatrist here. Patient crying and anxious in the room.. Historical: - Allergies: 13:42 Benadryl; ph - Home Meds: 19:25 abilify 20mg daily [Active]; aspirin 81mg daily [Active]; atorvastatin 80mg daily ph [Active]; clonazepam 0.5mg TID [Active]; Glipizide 5mg daily [Active]; lexapro 20mg daily [Active]; lisinopril 2.5mg daily [Active]; metformin 1000mg BID [Active]; metoprolol 25mg BID [Active]; trazadone 100mg nightly [Active]; - PMHx: 13:42 Anxiety; diabetes mellitus; Hypercholesterolemia; Hypertensive disorder; Myocardial ph infarction; - PSHx: 13:42 triple bypass; Cholecystectomy; ph - Immunization history:: Adult Immunizations unknown. - Social history:: Smoking status: Reported history of juuling and/or vaping. Patient/guardian denies using alcohol, street drugs. ROS: 12:23 Constitutional: Negative for fever, chills, and weight loss, Eyes: Negative for injury, jh7 pain, redness, and discharge, Neck: Negative for injury, pain, and swelling, Cardiovascular: Negative for chest pain, palpitations, and edema, Respiratory: Negative for shortness of breath, cough, wheezing, and pleuritic chest pain, Abdomen/GI: Negative for abdominal pain, nausea, vomiting, diarrhea, and constipation, MS/Extremity: Negative for injury and deformity, Skin: Negative for injury, rash, and discoloration, Neuro: Negative for headache, weakness, numbness, tingling, and seizure, 12:23 Psych: Positive for anxiety, depression, suicidal ideation, Negative for alcohol dependence, auditory hallucinations, visual hallucinations, homicidal ideation, suicide gesture, 12:23 All other systems are negative, Exam: 12:23 Constitutional: This is a well developed, well nourished patient who is awake, alert, jh7 and in no acute distress. Head/Face: Normocephalic, atraumatic. Neck: Trachea midline, no thyromegaly or masses palpated, and no cervical lymphadenopathy. Supple, full range of motion without nuchal rigidity, or vertebral point tenderness. No Meningismus. Cardiovascular: Regular rate and rhythm with a normal S1 and S2. No gallops, murmurs, or rubs. Normal PMI, no JVD. No pulse deficits. Respiratory: Lungs have equal breath sounds bilaterally, clear to auscultation and percussion. No rales, rhonchi or wheezes noted. No increased work of breathing, no retractions or nasal flaring. Abdomen/GI: Soft, non-tender, with normal bowel sounds. No distension or tympany. No guarding or rebound. No evidence of tenderness throughout. Skin: Warm, dry with normal turgor. Normal color with no rashes, no lesions, and no evidence of cellulitis. MS/ Extremity: Pulses equal, no cyanosis. Neurovascular intact. Full, normal range of motion. Neuro: Awake and alert, GCS 15, oriented to person, place, time, and situation. Motor strength 5/5 in all extremities. Sensory grossly intact. Normal gait. 12:23 Psych: Behavior/mood is anxious, suicidal, depressed, Affect is calm, Oriented to person, place, time, Patient having thoughts of suicide. Plan for suicide is slitting wrist and jumping off balcony Judgement / Insight is normal. Memory is normal. Delusions/hallucinations are not present. Vital Signs: 12:22 BP 141 / 92; Pulse 91; Resp 22; Temp 97.5; Pulse Ox 98% on R/A; ph 12:25 Weight 68.04 kg; Height 5 ft. 5 in. ; ph 21:00 BP 118 / 64; Pulse 90; Resp 16; Temp 97.9(O); Pulse Ox 97% on R/A; Pain 0/10; pf1 11/03 06:34 BP 120 / 76; Pulse 78; Resp 16; Pulse Ox 99% ; pf1 14:00 BP 128 / 74; Pulse 98; Resp 16; Temp 98; Pulse Ox 97% on R/A; iw 11/02 12:25 Body Mass Index 24.96 (68.04 kg, 165.1 cm) ph 21:00 Pain Scale: Adult pf1 MDM: 11/02 12:23 Patient medically screened. [facility] 16:11 ED course: Antoinette [facility], advised inpatient transfer to [address] 16:13 Differential diagnosis: acute psychotic break, depression, suicidal ideation. Data [facility] reviewed: vital signs, nurses notes, lab test result(s), EKG. Consideration of Admission/Observation The patient will be transferred for the appropriate specialty. Management of patient was discussed with the following: Behavioral Health Provider: Antoinette. I considered the following discharge prescriptions or medication management in the emergency department Medications were administered in the Emergency Department. See MAR. Independent interpretation of the following test(s) in the Emergency Department EKG: See my EKG interpretation above. Care significantly affected by the following chronic conditions: Diabetes, Hypertension. Counseling: I had a detailed discussion with the patient and/or guardian regarding the historical points, exam findings, and any diagnostic results supporting the discharge/admit diagnosis, the need to transfer to another facility, [facility] does not immediately have the required specialist. Response to treatment: the patient's symptoms have mildly improved after treatment. 11/03 07:00 Transition of care: Care assumed from Rolando Jama MD. ms3 10:05 ED course: Patient reevaluated. Patient alert, in no apparent distress, patient crying ms3 stating she cannot do it anymore and would like to . Will give patient 2 mg Ativan.. 11/02 12:29 Order name: Acetaminophen; Complete Time: 13: [facility] 11/02 12:29 Order name: Basic Metabolic Panel; Complete Time: 13: 7 11/02 12:29 Order name: CBC with Diff; Complete Time: 13:20 7 11/02 12:29 Order name: ETOH Level; Complete Time: 13: [facility] 11/02 12:29 Order name: Hepatic Function; Complete Time: 13: 11/02 12:29 Order name: PT-INR; Complete Time: 13: 11/02 12:29 Order name: Ptt, Activated; Complete Time: 13: [facility] 11/02 12:29 Order name: Salicylate; Complete Time: 13:33 7 11/02 12:29 Order name: Urine Drug Screen; Complete Time: 13: 7 11/02 16:31 Order name: Glucose; Complete Time: 17:16 7 11/02 16:39 Order name: Glucose, Ancillary Testing; Complete Time: 17:16 EDMS 11/02 18:07 Order name: Glucose, Ancillary Testing; Complete Time: 18:08 EDMS 11/02 20:35 Order name: Glucose, Ancillary Testing; Complete Time: 10:06 EDMS 11/02 21:40 Order name: Glucose, Ancillary Testing; Complete Time: 10:06 EDMS 11/02 23:28 Order name: Glucose, Ancillary Testing; Complete Time: 10:06 EDMS 11/03 02:11 Order name: Glucose, Ancillary Testing; Complete Time: 10:06 EDMS 11/03 06:45 Order name: Glucose, Ancillary Testing; Complete Time: 10: EDMS 11/03 07:32 Order name: Glucose, Ancillary Testing; Complete Time: 10:06 EDMS 11/02 12:29 Order name: EKG; Complete Time: 12:29 7 11/02 12:29 Order name: EKG - Nurse/Tech; Complete Time: 13:03 7 11/02 12:29 Order name: IV Saline Lock; Complete Time: 13:03 7 11/02 12:29 Order name: Labs collected and sent; Complete Time: 13: 7 11/02 12:29 Order name: Suicide Precautions; Complete Time: 13:[address] [facility] 11/02 12:29 Order name: Suicide Screening ([place]); Complete Time: 13:45 7 11/02 16:14 Order name: Recheck Blood Sugar; Complete Time: 16:[address] [facility] 11/02 17:17 Order name: Recheck Blood Sugar: after fluids and insulin; Complete Time: 19:24 jh7 EC/07 13:00 Rate is 91 beats/min. Rhythm is regular. QRS [place] is Normal. UT interval is normal at jh7 180 msec. QRS interval is normal at 92 msec. QT interval is normal at 368 msec. No Q waves. T waves are Inverted in leads aVR, V1. No ST changes noted. Clinical impression: NSR w/ Non-specific ST/T Changes. Administered Medications: 13:58 Drug: LORazepam PO 1 mg PO once Route: PO; ph 13:58 Drug: Nicoderm CQ Transdermal Patch 21 mg/24 hr 1 patches Transdermal once {Note: ph applied to L upper arm.} Route: Transdermal; Site: affected area; 14:01 Drug: Insulin Regular Human IVP 10 units IVP once {Co-Signature: cp4 (Brisa, [facility]).} Route: IVP; Site: left wrist; 16:35 Drug: NS 0.9% IV 1000 ml IV at 1 bolus Per protocol; 1000 mL bolus Route: IV; Rate: 1 ph bolus; Site: left wrist; 16:35 Drug: Insulin Regular Human IVP 10 units IVP once {[facility]} Route: IVP; Site: left wrist; 21:35 CANCELLED (ordered under Dr. Francois): insulin regular human10 units IVP once pf1 21:35 CANCELLED (ordered under Dr. Francois): ns 0.9% 1000 ml IV at 1 bolus Per protocol; pf1 1000 mL bolus 21:35 CANCELLED (order by Dr. jama ): insulin [id number] units Sub-Q once pf1 21:52 Drug: Ativan IVP 2 mg IVP once Route: IVP; Site: left wrist; pf1 22:50 Follow up: Response: No adverse reaction; Marked relief of symptoms; Anxiety decreased pf1 21:53 Drug: Insulin Regular Human IVP 10 units IVP once {Co-Signature: cp4 (Brisa, [address]).} Route: IVP; Site: left wrist; 22:50 Follow up: Response: No adverse reaction; Marked relief of symptoms; Blood sugar is pf1 lowered 21:56 Drug: Insulin Glargine Sub-Q 30 units Sub-Q once {Co-Signature: cp4 (Brisa, pf1 Fariba).} Route: Sub-Q; Site: left upper arm; 22:50 Follow up: Response: No adverse reaction; Marked relief of symptoms; Blood sugar is pf1 lowered 21:57 Drug: NS 0.9% IV 1000 ml IV at 1 bolus Per protocol; 1000 mL bolus Route: IV; Rate: 1 pf1 bolus; Site: left wrist; 23:24 Follow up: IV Status: Completed infusion; IV Intake: 1000ml pf1 23:47 Drug: Insulin Regular Human Sub-Q 10 units Sub-Q once {Co-Signature: lg3 (Kell Macedo pf1 RN).} Route: Sub-Q; Site: right upper arm; 11/03 00:40 Follow up: Response: No adverse reaction; Marked relief of symptoms; Blood sugar is pf1 lowered 10:12 Drug: Ativan IVP 2 mg IVP once Route: IVP; Site: left wrist; cp4 Disposition: 18:43 Co-signature as Attending Physician, Ishmael Monreal DO. ms3 Disposition Summary: 11/02/23 13:26 Transfer Ordered Notes: Transfer Location: Psych Facility [facility] Reason: Higher level of care jh7 Condition: Fair jh7 Problem: chronic jh7 Symptoms: have worsened jh7 Accepting Physician: Accepting Psych facility(11/03/23 14:13) iw Diagnosis - Suicidal ideations jh7 Forms: - Medication Reconciliation Form jh7 - SBAR form jh7 Signatures: Dispatcher [employer] Chrissy Wyatt RN RN iw Hall, Patricia RN RN Ishmael Rasmussen DO DO ms3 Anais Velez, CORRECTIONAL COUNSELOR CORRECTIONAL COUNSELOR jh7 Nan Quinteros RN RN pf1 Fariba Ledezma cp4 Fariba Ledezma cp4 Kell Macedo RN lg3 Corrections: (The following items were deleted from the chart) 11/02 13:49 12:23 This 53 yrs old Female presents to ER via Unassigned with complaints of Suicidal jh7 ideation. jh7 21:35 21:33 Insulin Regular Human IVP 10 units IVP once ordered. pf1 pf1 21:35 21:33 NS 0.9% IV 1000 ml IV at 1 bolus Per protocol; 1000 mL bolus ordered. pf1 pf1 21:35 21:33 Insulin Glargine Sub-Q 30 units Sub-Q once ordered. pf1 pf1 21:35 21:34 Insulin Glargine Sub-Q 30 units Sub-Q once ordered. pf1 pf1 21:35 21:34 NS 0.9% IV 1000 ml IV at 1 bolus Per protocol; 1000 mL bolus ordered. pf1 pf1 21:35 21:34 Insulin Regular Human IVP 10 units IVP once ordered. pf1 pf1 11/03 14:13 11/02 13:26 Accepting [facility] facility [facility] iw
[2023-11-02 13:29] LABS: Barbiturates NEGATIVE (NEGATIVE); Benzodiazepines NEGATIVE (NEGATIVE); Cocaine NEGATIVE (NEGATIVE); METHAMPHETAM NEGATIVE (NEGATIVE); Methadone NEGATIVE (NEGATIVE); Opiates NEGATIVE (NEGATIVE); Phencyclidine NEGATIVE (NEGATIVE); THC Cannibis NEGATIVE (NEGATIVE)
--- NOTE | 2023-11-03 12:22 | EKG ---
Test Date: 2023-11-02 Test Time: 13:00:31 Transport Assistant: VICTORINA MEASUREMENT RESULTS: Intervals: Rate: 91 PA: 180 QRSD: 92 QT: 368 QTc: 452 [place]: P: 58 PA: 180 QRS: 68 T: 42 INTERPRETIVE STATEMENTS: Normal sinus rhythm Septal infarct, age undetermined Abnormal ECG Compared to ECG 12/26/2022 10:13:26 No significant changes Electronically Signed On 11-03-23 12:19:17 FUNCTIONAL DIRECTOR by David Santos
[2023-11-03 14:38] VITALS: BP 120/76; TEMP 97.9; O2SAT 99
== END ==
LOC: ER 12:07
DX: R45.851 Suicidal ideations (principal); I10 Essential (primary) hypertension; E11.9 Type 2 diabetes mellitus without complications; Z95.1 Presence of aortocoronary bypass graft; Z79.82 Long term (current) use of aspirin; Z88.8 Allergy status to other drugs, medicaments and biological substances
CPT/HCPCS: 36415; 80048; 80076; 80143; 80179; 80307; 82077; 82947; 85025; 85610; 85730; 93005; 96361; 96372; 96374; 96375; 99285; J1815; J7030; J7040

== ENCOUNTER 2025-07-25 12:16 | Emergency (ER) | payer SELFPAY ==
[2025-07-25] MEDS ORDERED: MAGNES/ALUMIN/SIMET 30ML UCUP ONE (14:14)
[2025-07-25] MEDS ORDERED: LIDOCAINE VISCOUS 2% 10ML ORAL SOLN ONE (14:14)
[2025-07-25 14:35] LABS: Absolute Lymphocytes (CBC) 2.0 K/uL (0.7-4.9); Hematocrit 51.0 % (36.0-45.0); Hemoglobin 17.0 g/dL (12.0-15.0); MCH 30.5 pg (27.0-35.0); MCHC 33.3 g/dL (32.0-36.0); MCV 91.4 fL (80-100); MPV 9.6 fL (7.6-11.3); Nucleated RBC Absolute Count 0.0 (0-0); Nucleated Red Blood Cells % 0.2 % (0-0); RBC Red Blood Cell Count 5.58 M/uL (3.86-4.86); White Blood Count 11.40 thou/uL (4.3-10.9)
--- NOTE | 2025-07-25 14:45 | RAD REPORT ---
EXAMINATION: CT ABDOMEN AND PELVIS WITH CONTRAST CLINICAL INDICATION: Abdominal pain TECHNIQUE: CT abdomen and pelvis was performed, after the administration of 100 cc Isovue-300.. Sagit jaci and coronal reconstructions were obtained. One or more of the following dose reduction techniques were used: Automated exposure control, adjustment of the mA and kV according to patient si ze, and iterative reconstruction. Unless otherwise specified, incidental findings do not require dedicated imaging follow-up. [id number]. Oral contrast was not given which limits evaluation of bowel and appendix. COMPARISON: .None FINDINGS: Mild fatty liver. Spleen, right adrenal and kidneys unremarkable. 1.7 cm left adrenal nodule Hounsfield unit 80 probably an adenoma..Recommend 1 year follow up adrenal washout CT. If stable ? 1 year, no further follow-up imaging. Pancreatic head appears mildly edematous. Mild stranding within the adjacent fat. Cholecystectomy. Normal appendix. 1.7 cm area of increased density within the uterus. No adnexal mass. No evidence of diverticulitis. : IMPRESSION: Pancreatic head appears mildly edematous. Mild stranding within the adjacent fat. These findings prob ably indicate a mild pancreatitis. 1.7 cm area of increased density within the uterus. It is uncertain if this is within the endometrium . It is recommended that patient have an endovaginal sonogram for further evaluation
[2025-07-25 14:51] LABS: Urine Culture Reflex Order NOT NEEDED; Urine Microscopic Reflex YN ORDER UMIC
[2025-07-25 14:53] LABS: ALT/SGPT 17 U/L (13-56); AST/SGOT 16 U/L (15-37); Albumin 3.4 g/dL (3.4-5.0); Albumin/Globulin Ratio 0.7 (1.1-1.8); Alkaline Phosphatase 118 U/L (45-117); Anion Gap 15.5 mEq/L (5.0-15.0); BUN Blood Urea Nitrogen 13 mg/dL (7-18); Globulin 4.8 g/dL (2.3-3.5); Lipase 56 U/L (13-75); Magnesium 1.8 mg/dL (1.6-2.4); NT PRO-BNP 128 pg/mL (<125); Potassium 4.5 mEq/L (3.5-5.1); Troponin High Sensitivity 5.7 pg/mL (<58.9)
[2025-07-25 14:54] LABS: Bilirubin Indirect, Calculated 0.2 mg/dL (0.2-0.8)
[2025-07-25 14:55] LABS: Glucose Level 440 mg/dL (74-106)
[2025-07-25 15:00] LABS: PT Prothrombin Time 12.8 SECONDS (10-13.0); Protime INR 1.14
[2025-07-25] MEDS ORDERED: NA CHLORIDE 0.9% 1,000 ML ONE (15:24)
[2025-07-25] MEDS ORDERED: INSULIN REGULAR (HUMAN) 100 UNIT/ML ONE (15:24)
--- NOTE | 2025-07-25 17:03 | RAD REPORT ---
EXAMINATION: Pelvis Complete CLINICAL INDICATION: Abnormal CAT scan TECHNIQUE: Real-time ultrasonography of the pelvis was performed transabdominally.. Color and spectra l Doppler evaluation of the ovaries was performed. COMPARISON: July 25, 2025. Findings: Examination is limited as the bladder is not well distended. The uterus measures 6 x 4 x 4 cm. The endometrial stripe is poorly evaluated. The 1.7 cm area of increased density described on ultrasound is also poorly evaluated. Neither ovary visualized secondary to overlying bowel gas. Right and left adnexa unremarkable. No free fluid IMPRESSION: Nondiagnostic evaluation of the potential abnormality seen on CT within the uterus. If the patient ca nnot tolerate an endovaginal sonogram then a nonemergent MRI should be obtained.
--- NOTE | 2025-07-25 17:19 | EDPHYS ---
Physician Documentation [facility] Name: María San Age: 55 yrs Sex: Female : 1970 Arrival Date: 07/25/2025 Time: 12:16 Bed 6 Private MD: ED Physician Rome Sabillon HPI: 07/25 14:21 This 55 yrs old Female presents to ER via Ambulatory with complaints of General sp3 Weakness, Abdominal Pain, Arm Problem - Left numbness. 14:21 55-year-old female with history of anxiety, diabetes, hypertension, DE, hyperlipidemia, sp3 anxiety and depression, with no PCP and no regular medications except her psych meds and propranolol which her psychiatrist prescribes now presents to the ED with chief complaint epigastric pain for the last 2 to 3 days. Patient is also status post cholecystectomy many years ago. She denies any headache, fever, neck pain, chest pain, shortness of breath, diarrhea, rash, syncope, near syncope, bleeding, or any other signs or symptoms on ROS at this time.. Historical: - Allergies: 13:30 Benadryl; dd2 - PMHx: 13:30 Anxiety; diabetes mellitus; Hypercholesterolemia; Hypertensive disorder; Myocardial dd2 infarction; - PSHx: 13:30 Cholecystectomy; triple bypass; dd2 - Immunization history:: Adult Immunizations unknown. - Infectious Disease History:: Denies. - Social history:: Smoking status: Reported history of juuling and/or vaping. ROS: 14:22 Constitutional: Negative for fever, chills, and weight loss, Eyes: Negative for injury, sp3 pain, redness, and discharge, ENT: Negative for injury, pain, and discharge, Neck: Negative for injury, pain, and swelling, Cardiovascular: Negative for chest pain, palpitations, and edema, Respiratory: Negative for shortness of breath, cough, wheezing, and pleuritic chest pain, Back: Negative for injury and pain, MS/Extremity: Negative for injury and deformity, Skin: Negative for injury, rash, and discoloration, Neuro: Negative for headache, weakness, numbness, tingling, and seizure, Psych: Negative for depression, anxiety, suicide ideation, homicidal ideation, and hallucinations, Allergy/Immunology: Negative for hives, rash, and allergies, Endocrine: Negative for neck swelling, polydipsia, polyuria, polyphagia, and marked weight changes, Hematologic/Lymphatic: Negative for swollen nodes, abnormal bleeding, and unusual bruising, 14:22 All other systems are negative, Exam: 14:23 Constitutional: This is a well developed, well nourished patient who is awake, alert, sp3 and in no acute distress. Head/Face: Normocephalic, atraumatic. Eyes: Pupils equal round and reactive to light, extra-ocular motions intact. Lids and lashes normal. Conjunctiva and sclera are non-icteric and not injected. Cornea within normal limits. Periorbital areas with no swelling, redness, or edema. ENT: Nares patent. No nasal discharge, no septal abnormalities noted. External auditory canals are clear. Oropharynx with no redness, swelling, or masses, exudates, or evidence of obstruction, uvula midline. Mucous membranes moist. Neck: Trachea midline, no thyromegaly or masses palpated, and no cervical lymphadenopathy. Supple, full range of motion without nuchal rigidity, or vertebral point tenderness. No Meningismus. Chest/axilla: Normal chest wall appearance and motion. Nontender with no deformity. No lesions are appreciated. Cardiovascular: Regular rate and rhythm with a normal S1 and S2. No gallops, murmurs, or rubs. Normal PMI, no JVD. No pulse deficits. Respiratory: Lungs have equal breath sounds bilaterally, clear to auscultation and percussion. No rales, rhonchi or wheezes noted. No increased work of breathing, no retractions or nasal flaring. Back: No spinal tenderness. No costovertebral tenderness. Full range of motion. Skin: Warm, dry with normal turgor. Normal color with no rashes, no lesions, and no evidence of cellulitis. MS/ Extremity: Pulses equal, no cyanosis. Neurovascular intact. Full, normal range of motion. Neuro: Awake and alert, GCS 15, oriented to person, place, time, and situation. Cranial nerves II-XII grossly intact. Motor strength 5/5 in all extremities. Sensory grossly intact. Cerebellar exam normal. Normal gait. Psych: Awake, alert, with orientation to person, place and time. Behavior, mood, and affect are within normal limits. 14:23 Abdomen/GI: Mild epigastric pain to palpation without peritoneal signs, rebound or guarding., 14:50 ECG was reviewed by the Attending Physician. EKG demonstrates normal sinus rhythm at 90 sp3 bpm with a first-degree AV block of 202 ms, normal QRS, normal axis and normal axis ST segments without evidence of acute ischemia. Vital Signs: 13:28 BP 121 / 73; Pulse 98; Resp 16; Temp 97.6; Pulse Ox 98% on R/A; Weight 66.68 kg; Height dd2 5 ft. 5 in. ; Pain 7/10; 14:52 BP 152 / 86; Pulse 91; Resp 15; Pulse Ox 100% ; jl7 15:35 BP 163 / 84; Pulse 93; Resp 15; Pulse Ox 100% ; jl7 16:22 BP 165 / 80; Pulse 57; Resp 15; Pulse Ox 100% ; jl7 17:00 BP 152 / 76; Pulse 85; Resp 15; Pulse Ox 97% ; jl7 13:28 Body Mass Index 24.46 (66.68 kg, 165.1 cm) dd2 13:28 Pain Scale: Adult dd2 MDM: 13:23 Medical Screening Exam initiated sp3 17:15 Data reviewed: vital signs, nurses notes, lab test result(s), EKG, radiologic studies. sp3 ED course: 55-year-old female with PMH above now with epigastric pain. Differential diagnosis includes gastritis, peptic ulcer disease, pancreatitis, colitis, musculoskeletal, among others. Workup will include CT scan of the pelvis with IV contrast, general labs and supportive care. Glucose was also quite high for which we gave IV fluids and insulin which is trending down. She is been on no medications for her diabetes. CT scan also demonstrated large mass adjacent to the uterus. Ultrasound did not further elucidate etiology. Patient is stable however and CT scan also demonstrated mild pancreatitis which is where I believe the patient's symptoms are coming from. I have advised her to follow-up with gynecology outpatient within the next 2 to 3 weeks at most 2 further workup of the mass. I will restart her glipizide low-dose and have given her instructions on the pancreatitis. She does not consume alcohol. Vital signs are normal and patient is feeling better. We will safely discharge her home at this time.. 07/25 13:59 Order name: Basic Metabolic Panel; Complete Time: 15:03 sp3 07/25 13:59 Order name: CBC with Diff; Complete Time: 14:51 sp3 07/25 13:59 Order name: LFT's; Complete Time: 15:03 sp3 07/25 13:59 Order name: Magnesium; Complete Time: 15:03 sp3 07/25 13:59 Order name: NT PRO-BNP; Complete Time: 15:03 sp3 07/25 13:59 Order name: PT-INR; Complete Time: 15:03 3 07/25 13:59 Order name: Troponin HS; Complete Time: 15:03 3 07/25 13:59 Order name: Lipase; Complete Time: 15:03 sp3 07/25 13:59 Order name: UA Rfx Yoel Cult if indicated; Complete Time: 15:03 3 07/25 16:22 Order name: Glucose, Ancillary Testing; Complete Time: 16:50 EDMS 07/25 13:59 Order name: CT Abd/Pelvis - IV Contrast Only; Complete Time: 14:51 sp3 07/25 16:28 Order name: Pelvis Complete; Complete Time: 17:07 EDMS 07/25 13:59 Order name: Cardiac monitoring; Complete Time: 14:50 sp3 07/25 13:59 Order name: EKG - Nurse/Tech; Complete Time: 14:50 sp3 07/25 13:59 Order name: IV Saline Lock; Complete Time: 14:21 sp3 07/25 13:59 Order name: Labs collected and sent; Complete Time: 14:21 sp3 07/25 13:59 Order name: O2 Per Protocol; Complete Time: 14:38 sp3 07/25 13:59 Order name: O2 Sat Monitoring; Complete Time: 14:38 3 07/25 14:34 Order name: Labs - recollect needed: recollect blue top; Complete Time: 14:50 bd 07/25 16:01 Order name: Accucheck; Complete Time: 16:14 sp3 Administered Medications: 14:33 Drug: GI Cocktail without - (Maalox PO 30 ml, Lidocaine Mucous Membrane 2 % 15 ap3 ml) PO once Route: PO; 15:34 Follow up: Response: No adverse reaction; Pain is decreased jl7 15:34 Drug: NS 0.9% IV 1000 ml IV at 1000 ml once; to be given as a bolus over 60 minutes jl7 Route: IV; Rate: 1000 ml; Site: left antecubital; 16:45 Follow up: Response: No adverse reaction; IV Status: Completed infusion; IV Intake: jl7 1000ml 15:34 Drug: Insulin Regular Human IVP 10 units IVP once {Co-Signature: joyce (Sharon Martin RN).} Route: IVP; Site: left antecubital; 16:31 Follow up: Response: Blood sugar is lowered jl7 Disposition Summary: 07/25/25 17:18 Discharge Ordered Condition: Stable sp3 Diagnosis - Hyperglycemia, mild pancreatitis, new unknown uterine mass sp3 Followup: sp3 - With: Private Physician - When: Upon discharge from the Emergency Department - Reason: Continuance of care Discharge Instructions: - Discharge Summary Sheet sp3 - Acute Pancreatitis sp3 - Diabetes Mellitus and Nutrition, Adult sp3 - Pancreatitis Eating Plan sp3 Forms: - Medication Reconciliation Form sp3 - Antibiotic Education sp3 - Prescription Opioid Use sp3 - Patient Portal Instructions sp3 - Leadership Thank You Letter sp3 Prescriptions: - Glipizide 5 mg Oral Tablet - take 1 tablet ORAL route once daily before a meal; 20 tablet; Refills: 0, sp3 Product Selection Permitted - Tramadol 50 mg Oral Tablet - take 1 tablet ORAL route every 8 hours as needed; 12 tablet; Refills: 0, sp3 Product Selection Permitted Signatures: Dispatcher [employer] EDMS Gail Graf Jahala, RN RN jl7 Sharon Martin RN RN ap3 Rome Sabillon MD MD sp3 KIARRA QUINONES RN RN dd2 Sharon Martin RN ap3 Corrections: (The following items were deleted from the chart) 14:00 14:00 BASIC METABOLIC PANEL+C.LAB.BRZ ordered. EDMS EDMS 14:00 14:00 CBC+H.LAB.BRZ ordered. EDMS EDMS 14:00 14:00 HEPATIC FUNCTION+C.LAB.BRZ ordered. EDMS EDMS 14:00 14:00 MAGNESIUM+C.LAB.BRZ ordered. EDMS EDMS 14:00 14:00 PROBNP+C.LAB.BRZ ordered. EDMS EDMS 14:00 14:00 PROTIME (+INR)+COAG.LAB.BRZ ordered. EDMS EDMS 14:00 14:00 Troponin High Sensitivity+C.LAB.BRZ ordered. EDMS EDMS 14:00 14:00 LIPASE+C.LAB.BRZ ordered. EDMS EDMS 14:00 14:00 UA Rfx Yoel Cult if indicated+U.LAB.BRZ ordered. EDMS EDMS 14:00 14:00 Abdomen Pelvis W Con+CT.RAD.BRZ ordered. EDMS EDMS 14:50 14:23 ECG was reviewed by the Attending Physician. EKG demonstrates normal sinus rhythm sp3 at 71 bpm with normal intervals, normal QRS, normal axis and normal ST/T-segment's without evidence of acute ischemia. sp3 14:50 14:50 ECG was reviewed by the Attending Physician. sp3 sp3 16:28 15:30 Transvaginal Study (Probe)+US.RAD.BRZ ordered. EDMS EDMS
--- NOTE | 2025-07-25 17:19 | ER ---
Nurse's Notes [facility] Name: María San Age: 55 yrs Sex: Female : 1970 Arrival Date: 07/25/2025 Time: 12:16 Bed 6 Private MD: Diagnosis: Hyperglycemia, mild pancreatitis, new unknown uterine mass Presentation: 07/25 13:28 Chief complaint: Patient states: FEELING WEAK, UPPER STOMACH PAIN X 4 DAYS, LT ARM dd2 NUMBNESS OFF/ON X 2 DAYS. Coronavirus screen: At this time, the client does not indicate any symptoms associated with coronavirus-19. Ebola Screen: No symptoms or risks identified at this time. Initial Sepsis Screen: Does the patient meet any 2 criteria? No. Patient's initial sepsis screen is negative. Does the patient have a suspected source of infection? No. Patient's initial sepsis screen is negative. Risk Assessment: Do you want to hurt yourself or someone else? Patient reports no desire to harm self or others. Onset of symptoms was July 21, 2025. 13:28 Method Of Arrival: Ambulatory dd2 13:28 Acuity: ZENAIDA 3 dd2 Triage Assessment: 13:30 General: Appears uncomfortable, Behavior is calm, cooperative, appropriate for age. dd2 Pain: Complains of pain in right upper quadrant and left upper quadrant. Neuro: Reports numbness in left arm. GI: Reports upper abdominal pain. Historical: - Allergies: 13:30 Benadryl; dd2 - PMHx: 13:30 Anxiety; diabetes mellitus; Hypercholesterolemia; Hypertensive disorder; Myocardial dd2 infarction; - PSHx: 13:30 Cholecystectomy; triple bypass; dd2 - Immunization history:: Adult Immunizations unknown. - Infectious Disease History:: Denies. - Social history:: Smoking status: Reported history of juuling and/or vaping. Screenin:52 [facility] ED Fall Risk Assessment (Adult) History of falling in the last 3 months, jl7 including since admission No falls in past 3 months (0 pts) Confusion or Disorientation No (0 pts) Intoxicated or Sedated No (0 pts) Impaired Gait No (0 pts) Mobility Assist Device Used No (0 pt) Altered Elimination No (0 pt) Score/Fall Risk Level 0 - 2 = Low Risk Oriented to surroundings, Maintained a safe environment. Abuse screen: Denies threats or abuse. Denies injuries from another. Nutritional screening: No deficits noted. Tuberculosis screening: No symptoms or risk factors identified. Assessment: 14:38 General: Appears in no apparent distress. comfortable, Behavior is calm, cooperative, ap3 appropriate for age. Pain: Complains of pain in abdomen. Neuro: Level of Consciousness is awake, alert, obeys commands, Oriented to person, place, time, situation, Appropriate for age. Cardiovascular: Patient's skin is warm and dry. Respiratory: Airway is patent Respiratory effort is even, unlabored, Respiratory pattern is regular, symmetrical. GI: Abdomen is non-distended, Abd is soft Reports lower abdominal pain, upper abdominal pain. 16:00 Reassessment: Patient appears in no apparent distress at this time. No changes from 7 previously documented assessment. Patient and/or family updated on plan of care and expected duration. Pain level reassessed. Patient is alert, oriented x 3, equal unlabored respirations, skin warm/dry/pink. 17:01 Reassessment: Patient appears in no apparent distress at this time. Patient and/or jl7 family updated on plan of care and expected duration. Pain level reassessed. Patient is alert, oriented x 3, equal unlabored respirations, skin warm/dry/pink. Patient states feeling better. Vital Signs: 13:28 BP 121 / 73; Pulse 98; Resp 16; Temp 97.6; Pulse Ox 98% on R/A; Weight 66.68 kg; Height dd2 5 ft. 5 in. ; Pain 7/10; 14:52 BP 152 / 86; Pulse 91; Resp 15; Pulse Ox 100% ; jl7 15:35 BP 163 / 84; Pulse 93; Resp 15; Pulse Ox 100% ; jl7 16:22 BP 165 / 80; Pulse 57; Resp 15; Pulse Ox 100% ; jl7 17:00 BP 152 / 76; Pulse 85; Resp 15; Pulse Ox 97% ; jl7 13:28 Body Mass Index 24.46 (66.68 kg, 165.1 cm) dd2 13:28 Pain Scale: Adult dd2 ED Course: 12:18 Patient arrived in ED. im 12:29 Rome Sabillon MD is Attending Physician. sp3 13:30 Triage completed. dd2 13:30 Arm band placed on left wrist. dd2 14:12 Jensen, Jahala, RN is Primary Nurse. jl7 14:15 Missed attempt(s): 20 gauge in right antecubital area. Bleeding controlled, band aid bc6 applied, catheter tip intact. 14:21 Lipase Sent. bc6 14:21 Basic Metabolic Panel Sent. bc6 14:21 CBC with Diff Sent. bc6 14:21 LFT's Sent. bc6 14:21 Magnesium Sent. bc6 14:21 NT PRO-BNP Sent. bc6 14:21 PT-INR Sent. bc6 14:21 Troponin HS Sent. bc6 14:21 Initial lab(s) drawn, by me, sent to lab. Inserted saline lock: 22 gauge in left bc6 antecubital area, using aseptic technique. Blood collected. Flushed with 10 mL NS. 14:30 CT Abd/Pelvis - IV Contrast Only In Process Unspecified. EDMS 14:50 EKG done, by ED staff, reviewed by Rome Sabillon MD. ts3 14:50 Lab(s) recollected, by laborer carpentry dock, sent to lab. ts3 14:52 Patient has correct armband on for positive identification. Provided Education on: use jl7 of call doyle. Client placed on continuous cardiac and pulse oximetry monitoring. NIBP monitoring applied. compliance monitor on. Pulse ox on. 16:28 Pelvis Complete In Process Unspecified. EDMS 17:29 No provider procedures requiring assistance completed. IV discontinued, intact, jl7 bleeding controlled, No redness/swelling at site. Pressure dressing applied. Administered Medications: 14:33 Drug: GI Cocktail without - (Maalox PO 30 ml, Lidocaine Mucous Membrane 2 % 15 ap3 ml) PO once Route: PO; 15:34 Follow up: Response: No adverse reaction; Pain is decreased jl7 15:34 Drug: NS 0.9% IV 1000 ml IV at 1000 ml once; to be given as a bolus over 60 minutes jl7 Route: IV; Rate: 1000 ml; Site: left antecubital; 16:45 Follow up: Response: No adverse reaction; IV Status: Completed infusion; IV Intake: jl7 1000ml 15:34 Drug: Insulin Regular Human IVP 10 units IVP once {Co-Signature: ap3 (Sharon Martin7 RN).} Route: IVP; Site: left antecubital; 16:31 Follow up: Response: Blood sugar is lowered jl7 Medication: 14:52 VIS not applicable for this client. jl7 Intake: 16:45 IV: 1000ml; Total: 1000ml. jl7 Outcome: 17:18 Discharge ordered by MD. gleason 17:30 Discharged to home ambulatory, with significant other, jl7 17:30 Condition: stable 17:30 Discharge instructions given to patient, family, Instructed on discharge instructions, follow up and referral plans. medication usage, Demonstrated understanding of instructions, follow-up care, medications, Prescriptions given X 2, 17:30 Patient left the ED. jl7 Signatures: Dispatcher [employer] EDMS Suyapa Jensen RN RN jl7 Sharon Martin, RN RN ap3 Rome Sabillon MD MD sp3 Deandra Martin6 Alexandra Chicas DIANA, RN RN dd2 Portia Mchugh ts3 Sharon Martin RN ap3
[2025-07-25 17:35] VITALS: TEMP 97.6
[2025-07-25 17:42] VITALS: BP 152/76; O2SAT 97
== END 2025-07-25 17:30 | disposition home or self-care (01) ==
LOC: ER 12:16
DX: E11.65 Type 2 diabetes mellitus with hyperglycemia (principal); K85.90 Acute pancreatitis without necrosis or infection, unspecified; N85.8 Other specified noninflammatory disorders of uterus
CPT/HCPCS: 36415; 74177; 76856; 80048; 80076; 81001; 82947; 83690; 83735; 83880; 84484; 85025; 85610; 93005; 96361; 96374; 99285; J1815; J7030; Q9967